=== PATIENT | male | born 1955 | race Caucasian/White ===

== ENCOUNTER → 2019-07-09 11:27 | Outpatient (BNVA) | payer MEDICARE, OTHER, SELFPAY | PROVIDERS: Family Provider Family Medicine; PCP Family Medicine; Referring Provider Family Medicine; Visit Provider Otolaryngology | DX: H93.19 Tinnitus, unspecified ear (principal); H91.90 Unspecified hearing loss, unspecified ear; H91.10 Presbycusis, unspecified ear | CPT/HCPCS: 99203; 99214 ==

== ENCOUNTER → 2019-07-18 10:00 | Outpatient (BNVA) | payer MEDICARE, OTHER, SELFPAY | PROVIDERS: Family Provider Family Medicine; PCP Family Medicine; Visit Provider Family Medicine | DX: N18.3 Chronic kidney disease, stage 3 (moderate) (principal) | CPT/HCPCS: 80069; 82044; 82306; 82310; 83970; 85025 ==

== ENCOUNTER → 2019-10-03 10:00 | Outpatient (BNVA) | payer MEDICARE, OTHER, SELFPAY | PROVIDERS: Family Provider Family Medicine; PCP Family Medicine; Visit Provider Internal Medicine Nephrology | DX: N18.4 Chronic kidney disease, stage 4 (severe) (principal) | CPT/HCPCS: 80069; 82044; 85025 ==

== ENCOUNTER → 2019-12-13 10:42 | Outpatient (BNVA) | payer MEDICARE, OTHER, SELFPAY | PROVIDERS: Family Provider Family Medicine; PCP Family Medicine; Visit Provider Family Medicine | DX: M17.0 Bilateral primary osteoarthritis of knee (principal); N18.1 Chronic kidney disease, stage 1; E11.42 Type 2 diabetes mellitus with diabetic polyneuropathy; E11.9 Type 2 diabetes mellitus without complications | CPT/HCPCS: 83036 ==

== ENCOUNTER → 2020-03-12 09:46 | Outpatient (BNVA) | payer MEDICARE, OTHER, SELFPAY | PROVIDERS: Family Provider Family Medicine; PCP Family Medicine; Visit Provider Family Medicine | DX: E11.9 Type 2 diabetes mellitus without complications (principal); N18.1 Chronic kidney disease, stage 1 | CPT/HCPCS: 36415; 80053; 80061; 83036; 85025 ==

== ENCOUNTER → 2020-07-16 14:00 | Outpatient (BNVA) | payer MEDICARE, OTHER, SELFPAY | PROVIDERS: Family Provider Family Medicine; PCP Family Medicine; Visit Provider Dermatology | DX: N18.30 Chronic kidney disease, stage 3 unspecified (principal) | CPT/HCPCS: 80069; 82043; 82310; 83970; 85025 ==

== ENCOUNTER → 2021-01-15 13:37 | Outpatient (BNVA) | payer MEDICARE, OTHER, SELFPAY | PROVIDERS: Family Provider Family Medicine; PCP Family Medicine; Visit Provider Family Medicine | DX: E11.42 Type 2 diabetes mellitus with diabetic polyneuropathy (principal); E78.2 Mixed hyperlipidemia; I12.9 Hypertensive chronic kidney disease with stage 1 through stage 4 chronic kidney disease, or unspecified chronic kidney disease; N18.1 Chronic kidney disease, stage 1 | CPT/HCPCS: 80053; 80061; 83036; 84439; 84443; 85025 ==

== ENCOUNTER → 2021-04-21 10:00 | Outpatient (BNVA) | payer MEDICARE, OTHER, SELFPAY | PROVIDERS: Family Provider Family Medicine; PCP Family Medicine; Visit Provider Family Medicine | DX: R79.89 Other specified abnormal findings of blood chemistry (principal); E03.9 Hypothyroidism, unspecified | CPT/HCPCS: 84439; 84443 ==

== ENCOUNTER → 2021-05-20 11:12 | Outpatient (BNVA) | payer MEDICARE, OTHER, SELFPAY | PROVIDERS: Family Provider Family Medicine; PCP Family Medicine; Visit Provider Family Medicine | DX: M79.673 Pain in unspecified foot (principal); E11.42 Type 2 diabetes mellitus with diabetic polyneuropathy | CPT/HCPCS: 73630; 83036; 84550 ==

== ENCOUNTER → 2021-07-20 10:03 | Outpatient (BNVA) | payer MEDICARE, OTHER, SELFPAY | PROVIDERS: Family Provider Family Medicine; PCP Family Medicine; Visit Provider Family Medicine | DX: Z01.812 Encounter for preprocedural laboratory examination (principal); Z20.822 Contact with and (suspected) exposure to COVID-19; Z12.11 Encounter for screening for malignant neoplasm of colon; N18.31 Chronic kidney disease, stage 3a; G47.00 Insomnia, unspecified; G47.8 Other sleep disorders; E11.42 Type 2 diabetes mellitus with diabetic polyneuropathy; M17.0 Bilateral primary osteoarthritis of knee | CPT/HCPCS: 80069; 82043; 82310; 83970; 85025; 87635 ==

== ENCOUNTER 2021-07-27 06:20 | Day surgery (SDC) | payer MEDICARE, OTHER, SELFPAY ==
[2021-07-23 11:38] VITALS: BMI 39.7
[2021-07-27 06:37] VITALS: BP 162/95; PULSE 71; RESP 16; TEMP 36.2; O2SAT 94
[2021-07-27] MEDS: sodium chloride 0.9% 1,000 ML 30 ML IV (06:50)
--- NOTE | 2021-07-27 06:51 | P.ANESASSM_ITS ---
Pre-Anesthetic Assessment Height/Weight: Height 1.78 m Weight 125.645 kg Temp Pulse Resp BP Pulse Ox 97.2 F L 71 16 162/95 94 07/27/21 06:37 07/27/21 06:37 07/27/21 06:37 07/27/21 06:37 07/27/21 06:37 Preop Diagnosis: Screen Operation Date: 07/27/21 07:30 Proposed Procedures p Colonoscopy 82074(Not Applicable) - Rome Wright MD Familial anesthetic complications: None Was Beta Grabiel taken within 24 hours: Yes Was Clonidine taken within 24 hours: N/A Last intake: Intake Last Liquid Date 07/26/21 Last Liquid Time 23:30 Last Solid Date 07/26/21 Last Solid Time 00:00 Social No alcohol and No tobacco Exam alert, oriented x 3, clear to auscultation bilaterally and regular rate & rhythm Airway Submandibular: within normal limits Cervical ROM: within normal limits Mallampati: Class II Dentition: chipped Pulmonary Exertional Dyspnea and Sleep Apnea CV/HEM Hypertension METS = 4 Chronic Renal Insufficiency Hepatic None reported GI Gastroesophageal Reflux Disease Metabolic Diabetes Mellitus and Morbid Obesity [facility] None reported Neuropsych Neuropathy and None reported Anesthetic Plan ASA status: 3 Anesthesia: Anesthesia Evaluation, General and MAC Other: I discussed with the patient risks, goals, and benefits of MAC and general anesthesia. We discussed spectrum of MAC anesthesia including conversion to general as well as possibility of recall of intraoperative stimuli including discomfort/pain. Patient agrees to proceed with MAC. Risk of > 500 ml blood loss (7ml/kg in children): No Medications/Allergies Home Medications Medication Instructions Recorded Confirmed Last Taken Type acetaminophen 325 mg capsule 325 mg PO ONCE PRN 05/18/19 07/27/21 07/26/21 History blood-glucose meter (Contour Next #1 each 05/18/19 07/20/21 Unknown History EZ Meter) diclofenac sodium 1 % topical gel 2 gm TOPICAL BID PRN gm 05/18/19 07/27/21 Unknown History (Voltaren) allopurinol 300 mg tablet 300 mg PO DAILY #90 tab 11/05/20 07/27/21 07/26/21 Rx tamsulosin 0.4 mg capsule 0.4 mg PO DAILY #90 cap 11/05/20 07/27/21 07/26/21 Rx sertraline 100 mg tablet 150 mg PO Q24H #90 tab 12/17/20 07/27/21 07/26/21 Rx pregabalin 75 mg capsule (Lyrica) 75 mg PO BID #60 cap 02/26/21 07/27/21 07/26/21 Rx simvastatin 10 mg tablet 10 mg PO DAILY #30 tab 02/26/21 07/27/21 07/26/21 Rx furosemide 40 mg tablet (Lasix) 40 mg PO QAM #30 tab 03/05/21 07/27/21 07/26/21 Rx levothyroxine 100 mcg capsule 100 mcg PO DAILY #30 cap 04/23/21 07/27/21 07/26/21 Rx atenolol 50 mg tablet 50 mg PO DAILY #90 tab 06/24/21 07/27/21 07/26/21 Rx cpap #1 ea 06/24/21 07/20/21 Unknown Rx linagliptin 5 mg tablet (Tradjenta) 5 mg PO QAM #30 tab 06/24/21 07/27/21 07/26/21 Rx niacin 500 mg capsule,extended 500 mg PO BID #90 cap 06/24/21 07/27/21 07/26/21 Rx release potassium chloride 20 mEq 20 meq PO DAILY #90 tab 06/24/21 07/27/21 07/26/21 Rx tablet,extended release cephalexin 500 mg capsule 500 mg PO QID #40 cap 07/20/21 07/27/21 Unknown Rx tramadol 50 mg tablet 100 mg PO Q8H PRN #180 tab MDD 3 07/20/21 07/27/21 07/26/21 Rx zolpidem 10 mg tablet (Ambien) 10 mg PO .at HS PRN #30 tab 07/20/21 07/27/21 07/26/21 Rx glipizide 10 mg tablet 10 mg PO DAILY 07/23/21 07/27/21 07/26/21 History metformin 500 mg tablet 500 mg PO BID 07/23/21 07/27/21 07/26/21 History Allergies Allergy/AdvReac Type Severity Reaction Status Date / Time No Known Allergies Allergy Verified 07/27/21 06:33 Current Medications Generic Name Dose Route Start Last Admin Trade Name Freq PRN Reason Stop Dose Admin Sodium Chloride 1,000 mls @ 30 mls/hr 07/27/21 06:30 07/27/21 06:50 Sodium Chloride 0.9% IV 07/28/21 06:29 30 mls/hr .Q24H PAULETTE Administration PFSH Anesthesia Medical History BPH (benign prostatic hyperplasia) Diabetes Diabetic neuropathy History of MRSA infection Hyperlipidemia Hyperlipidemia Hypertension Insomnia GUSTAVO (obstructive sleep apnea) Osteoarthritis Renal failure Surgical History History of back surgery History of right knee surgery tka Social History Smoking and tobacco status: never smoked Alcohol intake: never Data Anesthesia Cardiac Studies: No Data to Display
--- NOTE | 2021-07-27 07:38 | P.HP_ITS ---
Same Day Surgery H&P Indication for Procedure/HPI DATE OF PROCEDURE: July 27, 2021 CHIEF COMPLAINT/INDICATIONFOR SURGICAL PROCEDURE: Screening PREOP DIAGNOSIS: Screen PLANNED PROCEDURE: Operation Date: 07/27/21 07:30 Proposed Procedures p Colonoscopy 26354(Not Applicable) - Rome Wright MD Medications/Allergies* Home Medications Medication Instructions Recorded Confirmed Type acetaminophen 325 mg capsule 325 mg PO ONCE PRN 05/18/19 07/27/21 History blood-glucose meter (Contour Next #1 each 05/18/19 07/20/21 History EZ Meter) diclofenac sodium 1 % topical gel 2 gm TOPICAL BID PRN gm 05/18/19 07/27/21 History (Voltaren) glipizide 10 mg tablet 10 mg PO DAILY 07/23/21 07/27/21 History metformin 500 mg tablet 500 mg PO BID 07/23/21 07/27/21 History Allergies/Adverse Reactions Allergy/AdvReac Type Severity Reaction Status Date / Time No Known Allergies Allergy Verified 07/27/21 06:33 Current Medications: Generic Name Dose Route Start Last Admin Trade Name Freq PRN Reason Stop Dose Admin Sodium Chloride 1,000 mls @ 30 mls/hr 07/27/21 06:30 07/27/21 06:50 Sodium Chloride 0.9% IV 07/28/21 06:29 30 mls/hr .Q24H PAULETTE Administration Pertinent History/Comorbid Conditions* Medical History (Updated 07/15/21 @ 10:07 by Rome Wright MD) BPH (benign prostatic hyperplasia) Diabetes Diabetic neuropathy History of MRSA infection Hyperlipidemia Hyperlipidemia Hypertension Insomnia GUSTAVO (obstructive sleep apnea) Osteoarthritis Renal failure Surgical History (Updated 05/18/19 @ 11:57 by Claude Polanco DO) History of back surgery History of right knee surgery tka Social History Smoking and tobacco status: never smoked Alcohol intake: never Pertinent Exam Findings alert, oriented x 3, clear to auscultation bilaterally, regular rate & rhythm, operative site marked and procedure specific exam findings Recommendations Surgery/Procedure today Coding Level of Care Code Acute School Childcare Attendant for Aylin Izaguirre
[2021-07-27 07:58] VITALS: BP 130/79; PULSE 61; RESP 18; TEMP 36.1; O2SAT 95
[2021-07-27 08:16] VITALS: BP 146/86; PULSE 62; RESP 18; O2SAT 96
--- NOTE | 2021-07-27 09:30 | ANE.PACU2 ---
Inpatient post-anesthesia follow up: Airway intact: Yes Vital signs: Temperature 97 F Pulse Rate 62 Respiratory Rate 18 Blood Pressure 146/86 Pulse Oximetry 96 Oxygen Delivery Me thod Room Air Oxygen Flow Rate Fraction of Inspir ed Oxygen Hydration adequate: Yes Nausea and vomiting: No Pain level: 1 Mental status: Baseline
== END 2021-07-27 08:25 | disposition home or self-care (01) ==
PROVIDERS: PCP Family Medicine; Visit Provider Internal Medicine
PROC: 0DJD8ZZ Inspection of Lower Intestinal Tract, Via Natural or Artificial Opening Endoscopic (ICD-10-PCS; CPT 45378; principal; 2021-07-27 07:30)
DX: Z12.11 Encounter for screening for malignant neoplasm of colon (principal); N40.0 Benign prostatic hyperplasia without lower urinary tract symptoms; E11.40 Type 2 diabetes mellitus with diabetic neuropathy, unspecified; Z86.14 Personal history of Methicillin resistant Staphylococcus aureus infection; M19.90 Unspecified osteoarthritis, unspecified site; E78.5 Hyperlipidemia, unspecified; I10 Essential (primary) hypertension; G47.30 Sleep apnea, unspecified; K21.9 Gastro-esophageal reflux disease without esophagitis; E11.9 Type 2 diabetes mellitus without complications; E66.01 Morbid (severe) obesity due to excess calories; Z68.39 Body mass index [BMI] 39.0-39.9, adult; Z79.84 Long term (current) use of oral hypoglycemic drugs
CPT/HCPCS: G0121; J2704; J7030

== ENCOUNTER → 2022-01-25 10:23 | Outpatient (BNVA) | payer MEDICARE, OTHER, SELFPAY | PROVIDERS: PCP Family Medicine; Visit Provider Family Medicine | DX: E11.9 Type 2 diabetes mellitus without complications | CPT/HCPCS: 83036 ==

== ENCOUNTER → 2022-03-03 10:14 | Outpatient (BNVA) | payer MEDICARE, OTHER, SELFPAY | PROVIDERS: PCP Family Medicine; Referring Provider Family Medicine; Visit Provider Podiatrist Foot & Ankle Surgery | DX: E11.42 Type 2 diabetes mellitus with diabetic polyneuropathy (principal); M19.171 Post-traumatic osteoarthritis, right ankle and foot; Q66.221 Congenital metatarsus adductus, right foot | CPT/HCPCS: 73630; 99203; 99204 ==

== ENCOUNTER → 2022-06-07 10:08 | Outpatient (BNVA) | payer MEDICARE, OTHER, SELFPAY | PROVIDERS: PCP Family Medicine; Visit Provider Podiatrist Foot & Ankle Surgery | DX: M19.171 Post-traumatic osteoarthritis, right ankle and foot (principal); Q66.221 Congenital metatarsus adductus, right foot; E11.42 Type 2 diabetes mellitus with diabetic polyneuropathy | CPT/HCPCS: 99214 ==

== ENCOUNTER → 2022-06-23 11:46 | Outpatient (BNVA) | payer MEDICARE, OTHER, SELFPAY | PROVIDERS: PCP Family Medicine; Visit Provider Family Medicine | DX: E11.9 Type 2 diabetes mellitus without complications (principal) | CPT/HCPCS: 83036 ==

== ENCOUNTER → 2022-09-15 09:39 | Outpatient (BNVA) | payer MEDICARE, OTHER, SELFPAY | PROVIDERS: PCP Family Medicine; Visit Provider Family Medicine | DX: E11.9 Type 2 diabetes mellitus without complications (principal) | CPT/HCPCS: 83036 ==

== ENCOUNTER → 2022-09-22 16:17 | Outpatient (BNVA) | payer MEDICARE, OTHER, SELFPAY | PROVIDERS: PCP Family Medicine; Visit Provider Registered Nurse | DX: N28.89 Other specified disorders of kidney and ureter (principal); N18.31 Chronic kidney disease, stage 3a | CPT/HCPCS: 80069; 82043; 82542; 82652; 85025 ==

== ENCOUNTER → 2023-01-20 09:35 | Outpatient (BNVA) | payer MEDICARE, OTHER, SELFPAY | PROVIDERS: PCP Family Medicine; Visit Provider Family Medicine | DX: E11.9 Type 2 diabetes mellitus without complications (principal) | CPT/HCPCS: 83036 ==

== ENCOUNTER → 2023-04-11 10:18 | Outpatient (BNVA) | payer MEDICARE, OTHER, SELFPAY | PROVIDERS: PCP Family Medicine; Visit Provider Family Medicine | DX: N18.31 Chronic kidney disease, stage 3a (principal); E55.9 Vitamin D deficiency, unspecified; N25.0 Renal osteodystrophy; N28.89 Other specified disorders of kidney and ureter | CPT/HCPCS: 80069; 82043; 82542; 82652; 85025 ==

== ENCOUNTER 2023-04-29 11:25 | Outpatient (CLI) | payer MEDICARE, OTHER, SELFPAY ==
--- NOTE | 2023-04-29 11:45 | US_ITS ---
WS: [id number] Exam: US renal BI with PV bladder Date/Time of Exam: 04/29/2023 11:45 AM Reason For Exam: N18.9 - Chronic kidney disease, unspecified No solid renal mass or renal obstruction. The LEFT kidney measures 13.2 x 4.26 x 6.25 cm. Cortical th ickness of the LEFT kidney is 1.23 cm. A 3.25 cm simple cyst is seen at the upper pole of the LEFT ki dney. The RIGHT kidney measures 12.66 x 5.26 x 4.14 cm. Cortical thickness of the RIGHT kidney is 1.42 cm. There is a 1.9 cm cyst at the midpole of the RIGHT kidney. The urinary bladder is smooth in contour. No sign of intrinsic or extrinsic bladder filling defect. P revoid bladder volume was 3 1 7 mL, post void volume was 5 mL. IMPRESSION: 1. No indication of the solid renal mass or renal obstruction. 2. Solitary simple bilateral renal cysts are noted. 3. No significant post void residual volume in the urinary bladder.
== END 2023-04-29 11:26 | disposition home or self-care (01) ==
PROVIDERS: PCP Family Medicine; Visit Provider Family Medicine
DX: N18.9 Chronic kidney disease, unspecified (principal); N28.1 Cyst of kidney, acquired
CPT/HCPCS: 76770; 76857

== ENCOUNTER → 2023-05-18 08:34 | Outpatient (BNVA) | payer MEDICARE, OTHER, SELFPAY | PROVIDERS: PCP Family Medicine; Visit Provider Family Medicine | DX: E11.9 Type 2 diabetes mellitus without complications (principal) | CPT/HCPCS: 83036 ==

== ENCOUNTER → 2023-06-09 07:32 | Outpatient (BNVA) | payer MEDICARE, OTHER, SELFPAY | PROVIDERS: PCP Family Medicine; Visit Provider Family Medicine | DX: N18.32 Chronic kidney disease, stage 3b (principal); N28.89 Other specified disorders of kidney and ureter | CPT/HCPCS: 80069; 81003; 82542; 85025 ==

== ENCOUNTER → 2023-07-18 11:21 | Outpatient (BNVA) | payer MEDICARE, OTHER, SELFPAY | PROVIDERS: PCP Family Medicine; Visit Provider Family Medicine | DX: E11.9 Type 2 diabetes mellitus without complications (principal) | CPT/HCPCS: 83036 ==

== ENCOUNTER → 2023-12-15 09:20 | Outpatient (BNVA) | payer MEDICARE, OTHER, SELFPAY | PROVIDERS: PCP Family Medicine; Visit Provider Nurse Practitioner Family | DX: N18.31 Chronic kidney disease, stage 3a (principal); Z68.41 Body mass index [BMI] 40.0-44.9, adult | CPT/HCPCS: 80069; 82043; 82306; 82310; 83970; 85007; 85027 ==

== ENCOUNTER → 2023-12-26 10:38 | Outpatient (BNVA) | payer MEDICARE, OTHER, SELFPAY | PROVIDERS: PCP Family Medicine; Visit Provider Nurse Practitioner Family | DX: E11.9 Type 2 diabetes mellitus without complications (principal) | CPT/HCPCS: 83036 ==

== ENCOUNTER → 2024-03-26 10:30 | Outpatient (BNVA) | payer MEDICARE, OTHER, SELFPAY | PROVIDERS: PCP Family Medicine; Visit Provider Nurse Practitioner Family | DX: E03.9 Hypothyroidism, unspecified; E11.9 Type 2 diabetes mellitus without complications; N18.9 Chronic kidney disease, unspecified | CPT/HCPCS: 80053; 80061; 83036; 84443 ==

== ENCOUNTER → 2024-06-18 08:52 | Outpatient (BNVA) | payer MEDICARE, OTHER, SELFPAY | PROVIDERS: PCP Nurse Practitioner Family; Visit Provider Nurse Practitioner Family | DX: N18.32 Chronic kidney disease, stage 3b (principal); Z68.41 Body mass index [BMI] 40.0-44.9, adult | CPT/HCPCS: 80069; 82043; 82306; 82310; 83970; 85025 ==

== ENCOUNTER → 2024-06-25 13:00 | Outpatient (BNVA) | payer MEDICARE, OTHER, SELFPAY | PROVIDERS: PCP Nurse Practitioner Family; Visit Provider Nurse Practitioner Family | DX: E11.9 Type 2 diabetes mellitus without complications (principal) | CPT/HCPCS: 83036 ==

== ENCOUNTER 2024-07-31 12:43 | Outpatient (CLI) | payer MEDICARE, OTHER, SELFPAY ==
--- NOTE | 2024-07-31 12:48 | XRR_ITS ---
PROCEDURE INFORMATION: Exam: XR Thoracic Spine Exam date and time: 07/31/2024 1:02 PM Age: 69 years old Clinical indication: Pain and injury or trauma; Blunt trauma (contusions or hematomas); Pain in thoracic spine; Injury details: Falls recently that has caused pain in the right wrist under the thumb. When PT fell it caused pain in the lower and mid back; Prior surgery; Surgery date: 6+ months; Surgery type: Arthritis and carpal tunner right wrist. L5/s1 plates; Additional info: M54.6 - pain in thoracic spine TECHNIQUE: Imaging protocol: Radiologic exam of the thoracic spine. Views: 3 views. COMPARISON: CR XR lumbar spine 2-3V* [id number] 07/31/2024 1:02 PM FINDINGS: Bones/joints: There is mild broad-based convex left curvature of the spine centered at the thoracolumbar junction. Vertebral body height is maintained. No acute fracture. Visible portions of the ribs are intact. Soft tissues: Unremarkable. Lungs: Visible portions of the lungs are unremarkable. XR/XR thoracic spine 3V* [id number] IMPRESSION: 1. Mild thoracolumbar scoliosis. 2. No acute fracture.
--- NOTE | 2024-07-31 12:48 | XRR_ITS ---
PROCEDURE INFORMATION: Exam: XR Lumbosacral Spine Exam date and time: 07/31/2024 1:02 PM Age: 69 years old Clinical indication: Injury or trauma; Blunt trauma (contusions or hematomas); Injury details: Falls recently that has caused pain in the right wrist under the thumb. When PT fell it caused pain in the lower and mid back. Prior surgery; Surgery date: 6+ months; Surgery type: Arthritis and carpal tunner right wrist. L5/s1 plates; Additional info: Z98.890 - other specified postprocedural states TECHNIQUE: Imaging protocol: Radiologic exam of the lumbosacral spine. Views: 2 or 3 views. COMPARISON: CR XR thoracic spine 3V* [id number] 07/31/2024 1:02 PM FINDINGS: Tubes, catheters and devices: Intact posterolateral hardware and osseous interbody fusion at L5-S1. No sign of loosening. Bones/joints: There is trace anterolisthesis of L5 on S1 which is chronic. Spinal alignment is otherwise normal. Vertebral body height is maintained. There is moderate disc degeneration at L4-L5. There is L5-S1 facet ankylosis. There is moderate facet spondylosis at L4-L5. No acute fracture. The visible portion of the pelvis and sacrum is intact. Visible portions of the ribs are intact. Soft tissues: Visible soft tissues are unremarkable. Vasculature: There is mild aortic calcification. XR/XR lumbar spine 2-3V* [id number] IMPRESSION: 1. No acute findings. 2. Intact L5-S1 posterolateral fusion.
--- NOTE | 2024-07-31 12:48 | XRR_ITS ---
PROCEDURE INFORMATION: Exam: XR Right Wrist Exam date and time: 07/31/2024 1:02 PM Age: 69 years old Clinical indication: Injury or trauma; Blunt trauma (contusions or hematomas); Injury details: Falls recently that has caused pain in the right wrist under the thumb. When PT fell it caused pain in the lower and mid back; Prior surgery; Surgery date: 6+ months; Surgery type: Arthritis and carpal tunner right wrist. L5/s1 plates. ; Additional info: M25.531 - pain in right wrist TECHNIQUE: Imaging protocol: Radiologic exam of the right wrist. Views: 3 or more views. COMPARISON: No relevant prior studies available. FINDINGS: Bones/joints: Alignment is normal. No acute fracture. There is moderate joint space narrowing and osteophytes at the 1st interphalangeal and metacarpophalangeal joints. There has been resection of the trapezium. The radiocarpal joint is unremarkable. There is mild chondrocalcinosis at the TFCC associated with ulnar positive variance. Soft tissues: Unremarkable. XR/XR wrist RT min 3V* [id number] IMPRESSION: 1. Ulnar positive variance and calcification the triangular fibrocartilage complex. Possible TFCC tear. 2. Osteoarthritis in the thumb with remote resection of the trapezium. 3. No acute fracture.
== END 2024-07-31 12:44 | disposition home or self-care (01) ==
LOC: RAD 12:45
PROVIDERS: PCP Nurse Practitioner Family; Visit Provider Nurse Practitioner Family
DX: Z98.890 Other specified postprocedural states (principal); M51.369 Other intervertebral disc degeneration, lumbar region without mention of lumbar back pain or lower extremity pain; M41.85 Other forms of scoliosis, thoracolumbar region; M11.231 Other chondrocalcinosis, right wrist; W19.XXXA Unspecified fall, initial encounter; M24.69 Ankylosis, other specified joint; M47.896 Other spondylosis, lumbar region; Z98.1 Arthrodesis status; I70.0 Atherosclerosis of aorta; R93.6 Abnormal findings on diagnostic imaging of limbs; M18.9 Osteoarthritis of first carpometacarpal joint, unspecified
CPT/HCPCS: 72072; 72100; 73110

== ENCOUNTER → 2024-08-08 09:04 | Outpatient (BNVA) | payer MEDICARE, OTHER, SELFPAY | PROVIDERS: PCP Nurse Practitioner Family; Visit Provider Nurse Practitioner | DX: G56.03 Carpal tunnel syndrome, bilateral upper limbs (principal); M19.031 Primary osteoarthritis, right wrist; M67.431 Ganglion, right wrist | CPT/HCPCS: 20600; 73110; 99204; J3301; J9999 ==

== ENCOUNTER 2024-08-14 05:15 | Outpatient (RCR) | payer MEDICARE, OTHER, SELFPAY | END 2024-09-12 23:59 | disposition home or self-care (01) | LOC: GPT 05:15 | PROVIDERS: PCP Nurse Practitioner Family; Visit Provider Nurse Practitioner Family | DX: R29.6 Repeated falls (principal) | CPT/HCPCS: 97110; 97112; 97162 ==

== ENCOUNTER 2024-09-13 05:00 | Outpatient (RCR) | payer MEDICARE, OTHER, SELFPAY | END 2024-10-09 12:39 | disposition home or self-care (01) | LOC: GPT 05:00 | PROVIDERS: PCP Nurse Practitioner Family; Visit Provider Nurse Practitioner Family | DX: R29.6 Repeated falls (principal) | CPT/HCPCS: 97110; 97112 ==

== ENCOUNTER → 2024-09-24 10:30 | Outpatient (BNVA) | payer MEDICARE, OTHER, SELFPAY | PROVIDERS: PCP Nurse Practitioner Family; Visit Provider Nurse Practitioner Family | DX: E11.9 Type 2 diabetes mellitus without complications (principal); I10 Essential (primary) hypertension; E03.9 Hypothyroidism, unspecified | CPT/HCPCS: 80053; 80061; 83036; 84443 ==

== ENCOUNTER → 2024-10-04 15:02 | Outpatient (BNVA) | payer MEDICARE, OTHER, SELFPAY | PROVIDERS: PCP Nurse Practitioner Family; Visit Provider Orthopaedic Surgery | DX: M54.32 Sciatica, left side (principal); M54.50 Low back pain, unspecified | CPT/HCPCS: 72110; 99203 ==

== ENCOUNTER 2024-10-19 11:17 | Outpatient (CLI) | payer MEDICARE, OTHER, SELFPAY ==
--- NOTE | 2024-10-19 11:45 | MR_ITS ---
WS: [id number] MRI LUMBAR SPINE NONCONTRAST HISTORY: lumbar pain, right-sided pain. Several falls. COMPARISON: None available. TECHNIQUE: Sagittal and axial multisequence imaging is submitted. Mild reversal of the normal cervical lordosis. Mild disc osteophyte encroachment upon the cervical canal at C4-5 and C6-7. Posterior L5-S1 lumbar fusion. Disc spaces are mildly narrowed. L4-5 disc base may contain a spacer or is calcified. Conus terminates normally at L1. L1-L2: Normal. L2-L3: Diffuse annular disc bulging with facet disease. Mild subarticular recess and foraminal narrowing. L3-L4: Large central disc protrusion extends cephalad from the disc. This extruded disc extends over a length of 2.0 cm. Largest transverse diameter is 1.0 cm. Disc is causing significant deformity of the thecal sac extending into the subarticular recess but greatest on the LEFT. Mild RIGHT and moderate LEFT foraminal narrowing due to disc osteophyte and facet disease. L4-L5: This disc level is difficult to see due to the hardware at L4-5. There does appear to be disc bulging. Extent of foraminal stenosis cannot be determined. L5-S1: Obscured by metallic artifact. MR/MR lumbar spine wo con* [id number] IMPRESSION: 1. Status post posterior lumbar fusion at L5-S1. 2. Large central extruded disc at L3-4. Disc extends cephalad from the disc sp deion and extends over a length of 2.0 cm. Maximum transverse diameter is 1.0 cm with significant mass effect upon the thecal sac and nerve roots, slightly grea ter to the LEFT than the RIGHT. 3. Moderate LEFT and mild RIGHT foraminal stenosis due to disc osteophyte and facet disease. 4. L4-5 and L5-S1 evaluation is limited by artifact.
== END 2024-10-19 11:18 | disposition home or self-care (01) ==
LOC: RAD 11:17
PROVIDERS: PCP Nurse Practitioner Family; Visit Provider Orthopaedic Surgery
DX: M54.50 Low back pain, unspecified (principal)
CPT/HCPCS: 72148

== ENCOUNTER → 2024-10-24 10:23 | Outpatient (BNVA) | payer MEDICARE, OTHER, SELFPAY | PROVIDERS: PCP Nurse Practitioner Family; Referring Provider Registered Nurse; Visit Provider Nurse Practitioner Family | DX: N18.32 Chronic kidney disease, stage 3b (principal) | CPT/HCPCS: 80069; 82043; 85025 ==

== ENCOUNTER → 2024-10-25 08:35 | Outpatient (BNVA) | payer MEDICARE, OTHER, SELFPAY | PROVIDERS: PCP Nurse Practitioner Family; Visit Provider Orthopaedic Surgery | DX: M54.50 Low back pain, unspecified (principal); Z09 Encounter for follow-up examination after completed treatment for conditions other than malignant neoplasm | CPT/HCPCS: 99214 ==

== ENCOUNTER → 2024-10-29 08:56 | Outpatient (BNVA) | payer MEDICARE, OTHER, SELFPAY | PROVIDERS: PCP Nurse Practitioner Family; Visit Provider Nurse Practitioner Family | DX: M54.16 Radiculopathy, lumbar region (principal); G89.29 Other chronic pain | CPT/HCPCS: 99214 ==

== ENCOUNTER → 2024-11-06 12:52 | Outpatient (BNVA) | payer MEDICARE, OTHER, SELFPAY | PROVIDERS: PCP Nurse Practitioner Family; Visit Provider Nurse Practitioner Family | DX: M79.10 Myalgia, unspecified site (principal); M54.16 Radiculopathy, lumbar region; G89.29 Other chronic pain | CPT/HCPCS: 20553; 99214; J1010; J3490 ==

== ENCOUNTER → 2024-11-21 10:07 | Outpatient (BNVA) | payer MEDICARE, OTHER, SELFPAY | PROVIDERS: PCP Nurse Practitioner Family; Visit Provider Nurse Practitioner Family | DX: M54.16 Radiculopathy, lumbar region (principal); G89.29 Other chronic pain | CPT/HCPCS: 99214 ==

== ENCOUNTER → 2024-12-05 13:39 | Outpatient (BNVA) | payer MEDICARE, OTHER, SELFPAY | PROVIDERS: PCP Nurse Practitioner Family; Visit Provider Anesthesiology Pain Medicine | DX: M54.16 Radiculopathy, lumbar region (principal); G89.29 Other chronic pain; M54.9 Dorsalgia, unspecified | CPT/HCPCS: 36416; 64483; 64484; 82962; J1100; J3490; J9999 ==

== ENCOUNTER → 2024-12-17 14:15 | Outpatient (BNVA) | payer MEDICARE, OTHER, SELFPAY | PROVIDERS: PCP Nurse Practitioner Family; Visit Provider Nurse Practitioner | DX: M19.031 Primary osteoarthritis, right wrist (principal); M67.431 Ganglion, right wrist | CPT/HCPCS: 20605; 73110; 99214; J3301; J9999 ==

== ENCOUNTER → 2024-12-19 08:51 | Outpatient (BNVA) | payer MEDICARE, OTHER, SELFPAY | PROVIDERS: PCP Nurse Practitioner Family; Visit Provider Nurse Practitioner Family | DX: M54.16 Radiculopathy, lumbar region (principal); G89.29 Other chronic pain | CPT/HCPCS: 99214 ==

== ENCOUNTER → 2024-12-25 10:25 | Outpatient (BNVA) | payer MEDICARE, OTHER, SELFPAY | PROVIDERS: PCP Nurse Practitioner Family; Visit Provider Nurse Practitioner Family | DX: E11.9 Type 2 diabetes mellitus without complications (principal) | CPT/HCPCS: 83036 ==

== ENCOUNTER → 2025-01-02 08:59 | Outpatient (BNVA) | payer MEDICARE, OTHER, SELFPAY | PROVIDERS: PCP Nurse Practitioner Family; Visit Provider Anesthesiology Pain Medicine | DX: M47.816 Spondylosis without myelopathy or radiculopathy, lumbar region (principal); M54.16 Radiculopathy, lumbar region | CPT/HCPCS: 64493; 64494; 64495; J3490; J9999 ==

== ENCOUNTER → 2025-01-17 10:16 | Outpatient (BNVA) | payer MEDICARE, OTHER, SELFPAY | PROVIDERS: PCP Nurse Practitioner Family; Visit Provider Nurse Practitioner Family | DX: M54.16 Radiculopathy, lumbar region (principal); G89.29 Other chronic pain | CPT/HCPCS: 99214 ==

== ENCOUNTER → 2025-01-21 10:26 | Outpatient (BNVA) | payer MEDICARE, OTHER, SELFPAY | PROVIDERS: PCP Nurse Practitioner Family; Visit Provider Nurse Practitioner | DX: M19.031 Primary osteoarthritis, right wrist (principal); M67.431 Ganglion, right wrist | CPT/HCPCS: 99214 ==

== ENCOUNTER → 2025-01-24 10:29 | Outpatient (BNVA) | payer MEDICARE, OTHER, SELFPAY | PROVIDERS: PCP Nurse Practitioner Family; Visit Provider Orthopaedic Surgery | DX: Z01.818 Encounter for other preprocedural examination (principal); M54.16 Radiculopathy, lumbar region; G89.29 Other chronic pain; M54.32 Sciatica, left side; M48.062 Spinal stenosis, lumbar region with neurogenic claudication | CPT/HCPCS: 36415; 80053; 81001; 85025; 99214 ==

== ENCOUNTER → 2025-02-08 09:21 | Outpatient (BNVA) | payer MEDICARE, OTHER, SELFPAY | PROVIDERS: PCP Nurse Practitioner Family; Visit Provider Family Medicine | DX: Z01.818 Encounter for other preprocedural examination (principal) | CPT/HCPCS: 93005 ==

== ENCOUNTER 2025-02-13 10:45 | Outpatient (CLI) | payer MEDICARE, OTHER, SELFPAY ==
--- NOTE | 2025-02-13 11:00 | MRR_ITS ---
PROCEDURE INFORMATION: Exam: MR Right Upper Extremity Joint Without Contrast; Wrist Exam date and time: 02/13/2025 10:57 AM Age: 69 years old Clinical indication: Pain; Right; Surgery date: 6+ months; Surgery type: Skull, RT shoulder, RT knee, lumbar fusion, RT thumb joint; Prior surgery of RT thumb joint. PT now has swelling on palm side of hand/wrist adjacent to that area. ; Additional info: Ganglion cyst of dorsum of RT wrist TECHNIQUE: Imaging protocol: Magnetic resonance imaging of the right upper extremity without contrast. Exam focused on the wrist. COMPARISON: CR XR wrist RT min 3V* [id number] 12/17/2024 2:17 PM FINDINGS: Bones/joints: There has been prior resection of the trapezium. As expected there is mild proximal migration of the 1st metacarpal. There is minimal marginal osteophytosis at the base of the 1st metatarsal and associated with the scaphoid trapezoid articulation. There is a small degenerative subchondral cyst seen in the proximal pole of the scaphoid. Scapholunate ligament: Unremarkable. No tear. Lunotriquetral ligament: Unremarkable. No tear. Triangular fibrocartilage complex: Intact. No tear. Flexor compartment tendons: Unremarkable. No tear. Extensor compartment tendons: There is mild tenosynovitis of the extensor carpi radialis longus and brevis tendon. There is also mild tenosynovitis of the extensor pollicis brevis and abductor pollicis longus tendon at and immediately distal to the radial styloid. Soft tissues: There is no soft tissue edema or fluid collection. No discrete ganglion is defined. MR/MR wrist RT wo con* [id number] IMPRESSION: 1. Mild tenosynovitis of the extensor carpi radialis longus and brevis tendon 2. Mild short-segment tenosynovitis of the extensor pollicis brevis and abductor pollicis longus tendon. 3. Postsurgical changes and mild degenerative changes at the lateral margin of the wrist status post trapezium resection.
== END 2025-02-13 10:46 | disposition home or self-care (01) ==
LOC: RAD 10:46
PROVIDERS: PCP Nurse Practitioner Family; Visit Provider Nurse Practitioner
DX: M19.031 Primary osteoarthritis, right wrist (principal); M67.431 Ganglion, right wrist
CPT/HCPCS: 73221

== ENCOUNTER 2025-02-15 07:31 | Day surgery (SDC) | payer MEDICARE, OTHER, SELFPAY ==
[2025-02-15] VITALS (11 sets, daily range): BP systolic 104–173; BP diastolic 62–88; PULSE 69–84; RESP 12–19; TEMP 36.1–36.6; O2SAT 90–97
--- NOTE | 2025-02-15 08:38 | ANES.PREANE2 ---
Pre-Anesthetic Assessment Height/Weight: Height 5 ft 10 in Weight 245 lb Temp Pulse Resp BP Pulse Ox O2 Del Method 97.0 F L 70 16 135/79 91 Room Air 02/15/25 07:41 02/15/25 07:41 02/15/25 07:41 02/15/25 07:41 02/15/25 07:41 02/15/25 07:41 Preop Diagnosis: Right L3/4 disc herniation with radiculopathy Operation Date: 02/15/25 09:00 Proposed Procedures p Lumbar Spine Decompression Lumbar Decompression(Not Applicable) - Joseph Worley, DO Was Beta Grabiel taken within 24 hours: N/A Was Clonidine taken within 24 hours: N/A Last intake: Intake Last Liquid Date 02/14/25 Last Liquid Time 23:00 Last Solid Date 02/14/25 Last Solid Time 23:00 Social No alcohol and No tobacco Exam alert, oriented x 3, clear to auscultation bilaterally and regular rate & rhythm Airway Submandibular: within normal limits Cervical ROM: within normal limits Mallampati: Class II Comments: Comments: Few missing teeth, denies any loose Anesthetic Plan ASA status: 3 Anesthesia: General Other: No prior issues with anesthesia NPO since yesterday evening History of hypothyroidism on Synthroid History of CKD, labs reviewed from 01/24/2025 and acceptable for procedure. CR 1.7 at that time which appears to be baseline Hypertension on atenolol METs greater than 4 but limited due to pain Plan for GETA Medications/Allergies Home Medications ?Medication ?Instructions ?Recorded ?Confirmed ?Last Taken ?Type acetaminophen 325 mg capsule 325 mg PO ONCE PRN Pain 05/18/19 02/14/25 07/26/21 History blood-glucose meter (Contour Next #1 ea 05/18/19 01/24/25 Unknown History EZ Meter kit) cpap #1 ea 06/24/21 01/24/25 Unknown Rx Accomdated custom insoles #1 ea 03/03/22 01/24/25 Unknown Rx Diabetic shoes no inserts #1 ea 03/03/22 01/24/25 Unknown Rx empagliflozin 25 mg tablet 25 mg PO QAM 12/26/23 02/14/25 02/11/25 History (Jardiance) potassium chloride 20 mEq 20 meq PO DAILY #90 tabs 06/21/24 02/14/25 02/14/25 Rx tablet,extended release lidocaine 5 % topical patch 2 patch topical DAILY PRN back 10/29/24 02/14/25 Unknown Rx pain #30 ea pregabalin 75 mg capsule (Lyrica) 75 mg PO BID #60 caps 12/06/24 02/14/25 02/14/25 Rx zolpidem 10 mg tablet 10 mg PO ONCE 30 days #30 tabs 12/19/24 02/14/25 02/14/25 Rx alpha lipoic acid 600 mg capsule 1,200 mg PO DAILY 02/08/25 02/14/25 Unknown History tramadol 50 mg tablet 100 mg (2 x 50 mg) PO Q8H #180 tabs 02/12/25 02/14/25 02/14/25 Rx allopurinol 300 mg tablet 300 mg PO DAILY 02/14/25 02/14/25 02/14/25 History atenolol 50 mg tablet 50 mg PO DAILY 02/14/25 02/14/25 02/15/25 History cholecalciferol (vitamin D3) 1,250 1,250 mcg PO DIRECTED 02/14/25 02/14/25 Unknown History mcg (50,000 unit) capsule furosemide 40 mg tablet 40 mg PO DAILY 02/14/25 02/14/25 02/14/25 History glipizide 10 mg tablet 20 mg PO BID 02/14/25 02/14/25 02/14/25 History levothyroxine 100 mcg tablet 100 mcg PO DAILY 02/14/25 02/14/25 02/14/25 History linagliptin 5 mg tablet (Tradjenta) 5 mg PO DAILY 02/14/25 02/14/25 02/11/25 History metformin 1,000 mg tablet 1,000 mg PO BID 02/14/25 02/14/25 02/14/25 History niacin 500 mg tablet,extended 500 mg PO BID 02/14/25 02/14/25 02/14/25 History release 24 hr sertraline 100 mg tablet 200 mg PO DAILY 02/14/25 02/14/25 02/14/25 History simvastatin 10 mg tablet 10 mg PO DAILY 02/14/25 02/14/25 02/14/25 History tamsulosin 0.4 mg capsule 0.4 mg PO DAILY 02/14/25 02/14/25 02/14/25 History Allergies Allergy/AdvReac Type Severity Reaction Status Date / Time No Known Allergies Allergy Verified 02/14/25 09:16 Current Medications Generic Name Dose Route Start Last Admin Trade Name Rhea PRN Reason Stop Dose Admin Sodium Chloride 1,000 mls @ 30 mls/hr 02/15/25 07:30 02/15/25 07:56 Sodium Chloride 0.9% IV 02/16/25 07:29 30 mls/hr .Q24H PAULETTE Administration PFSH Anesthesia Medical History History of kidney stones History of vitamin D deficiency Testosterone deficiency Erectile 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
--- NOTE | 2025-02-15 08:40 | W.PM.OPSUD ---
Surgery/Procedure H&P Update DATE OF PROCEDURE: February 15, 2025 DATE H&P PERFORMED: 01/24/25 H&P UPDATE INFORMATION: I have reviewed H&P completed within last 30 days, I have examined patient prior to procedure and No changes to prior documentation PREOP DIAGNOSIS: Right L3/4 disc herniation with radiculopathy PLANNED PROCEDURE: Operation Date: 02/15/25 09:00 Proposed Procedures p Lumbar Spine Decompression Lumbar Decompression(Not Applicable) - Joseph Worley DO
[2025-02-15] MEDS: ceFAZolin 2,000 mg SDV 2000 MG IVP (08:49)
[2025-02-15] MEDS: lidocaine-epi 1% 20 mL INJ 10 ML INJECTION (09:31)
--- NOTE | 2025-02-15 10:08 | XR_ITS ---
WS: [id number] XR lumbar spine 2-3V* [id number] REASON FOR EXAM: OR PICS FINDINGS: Surgical instrument overlies the left side of the L3-L4 disc space. XR/XR lumbar spine 2-3V* [id number] IMPRESSION: Lumbar level localization and surgery as above.
--- NOTE | 2025-02-15 10:26 | PM.OP ---
Operative Report Date of procedure: February 15, 2025 Pre-op diagnosis: Left L3-4 disc herniation with radiculopathy Post-op diagnosis: same Procedure done: Left L3-4 laminectomy with partial facetectomy and discectomy Surgeon: Joseph Worley DO Estimated blood loss (mL): 25 Procedure: Left L3-4 laminectomy with partial facetectomy and discectom Patient is brought to the operative suite. After undergoing anesthesia they are placed in the prone position. All areas of impingement are well padded. Patient is then prepped and draped in the normal sterile fashion. A skin incision is made over the L3/4 level. This is confirmed under c-arm guidance. A series of dilators are passed and the tubular retractor is docked on the L4 lamina. A bovie is used to clear the soft tissue off the lamina and the L 3/4 facet joint. A high speed bhavana is then used to perform the laminectomy and take down the medial aspect of the L 3/4 facet joint. A kerrison rongeure was then used to take down the remaining lamina and smooth the edge of the laminectomy up to the point where the ligamentum flavum attaches. Attention was then brought to the medial aspect of the facet joint. The remaining medial aspect of the superior and inferior aspect of the facet joint were taken down with the kerrison from the pedicle of L4 to L 4. The facet joint had significant hypertrophy. Attention was then brought to the Ligamentum Flavum. The ligament was taken down from the lamina of L3 to L4 and out medially to the remaining facet joint. The ligament was thick. The dura was then exposed. The dura was in good repair. L4 nerve root was reflected medially and disc fragments were removed. This was done using a micropituitary and curved curette. The L3 nerve was then traced with a curette out the L 3/4 foramen and found to be adequately decompressed. The L4 nerve was traced with a curette around the L4 pedicle. The lateral recess was opened with a kerrison helping to further decompress the L4 nerve. Wound is then irrigated copiously with saline and surgiflo is used to stop any bleeding. The tubular retractor is removed and the wound is closed with vicryl and monocryl suture. Steri strips were applied. A sterile dressing is then placed. Patient was then placed in the supine position and transferred to the PACU in stable condition.
--- NOTE | 2025-02-15 11:20 | ANE.PACU2 ---
Inpatient post-anesthesia follow up: Airway intact: Yes Vital signs: Temperature 97.6 F Pulse Rate 74 Respiratory Rate 16 Blood Pressure 112/66 Pulse Oximetry 92 Oxygen Delivery Me thod Room Air Oxygen Flow Rate 2 Fraction of Inspir ed Oxygen Hydration adequate: Yes Nausea and vomiting: No Pain level: 1 Mental status: Baseline
== END 2025-02-15 11:20 | disposition home or self-care (01) ==
PROVIDERS: PCP Nurse Practitioner Family; Visit Provider Orthopaedic Surgery
PROC: (CPT 63005; principal; 2025-02-15 09:00)
DX: M51.16 Intervertebral disc disorders with radiculopathy, lumbar region (principal); E03.9 Hypothyroidism, unspecified; E11.22 Type 2 diabetes mellitus with diabetic chronic kidney disease; I12.9 Hypertensive chronic kidney disease with stage 1 through stage 4 chronic kidney disease, or unspecified chronic kidney disease; N18.9 Chronic kidney disease, unspecified; G47.33 Obstructive sleep apnea (adult) (pediatric); Z86.14 Personal history of Methicillin resistant Staphylococcus aureus infection; E78.5 Hyperlipidemia, unspecified; Z79.84 Long term (current) use of oral hypoglycemic drugs
CPT/HCPCS: 63030; 36416; 72100; 76000; 82962; J0330; J0690; J1100; J2405; J2704; J3010; J3490; J7030; J9999

== ENCOUNTER → 2025-02-28 14:21 | Outpatient (BNVA) | payer MEDICARE, OTHER, SELFPAY | PROVIDERS: PCP Nurse Practitioner Family; Visit Provider Orthopaedic Surgery | DX: Z98.890 Other specified postprocedural states (principal) | CPT/HCPCS: 99024 ==

== ENCOUNTER 2025-03-04 11:31 | Outpatient (CLI) | payer MEDICARE, SELFPAY | END 2025-03-04 11:32 | disposition home or self-care (01) | LOC: SPT 11:31 | PROVIDERS: PCP Nurse Practitioner Family; Visit Provider Nurse Practitioner | DX: Z46.89 Encounter for fitting and adjustment of other specified devices (principal); M18.11 Unilateral primary osteoarthritis of first carpometacarpal joint, right hand | CPT/HCPCS: L3924 ==

== ENCOUNTER → 2025-03-22 09:07 | Outpatient (BNVA) | payer MEDICARE, OTHER, SELFPAY | PROVIDERS: PCP Nurse Practitioner Family; Visit Provider Nurse Practitioner | DX: M65.931 Unspecified synovitis and tenosynovitis, right forearm (principal); M19.031 Primary osteoarthritis, right wrist; Z71.89 Other specified counseling | CPT/HCPCS: 20610; 99214; J3301; J9999 ==

== ENCOUNTER → 2025-03-27 08:00 | Outpatient (BNVA) | payer MEDICARE, OTHER, SELFPAY | PROVIDERS: PCP Nurse Practitioner Family; Visit Provider Nurse Practitioner Family | DX: E11.9 Type 2 diabetes mellitus without complications (principal); I10 Essential (primary) hypertension; E55.9 Vitamin D deficiency, unspecified | CPT/HCPCS: 80053; 80061; 82306; 83036 ==

== ENCOUNTER → 2025-03-28 10:17 | Outpatient (BNVA) | payer MEDICARE, OTHER, SELFPAY | PROVIDERS: PCP Nurse Practitioner Family; Visit Provider Orthopaedic Surgery | DX: Z98.890 Other specified postprocedural states (principal) | CPT/HCPCS: 99024 ==

== ENCOUNTER 2025-04-09 15:55 | Outpatient (RCR) | payer MEDICARE, OTHER, SELFPAY | END 2025-04-14 23:59 | disposition home or self-care (01) | LOC: GPT 15:55 | PROVIDERS: PCP Nurse Practitioner Family; Visit Provider Orthopaedic Surgery | DX: Z98.890 Other specified postprocedural states (principal) | CPT/HCPCS: 97162 ==

== ENCOUNTER 2025-05-02 09:06 | Outpatient (RCR) | payer MEDICARE, OTHER, SELFPAY | END 2025-05-15 23:59 | disposition home or self-care (01) | LOC: GPT 09:06 | PROVIDERS: PCP Nurse Practitioner Family; Visit Provider Orthopaedic Surgery | DX: Z98.890 Other specified postprocedural states (principal) | CPT/HCPCS: 97110; 97112; 97140 ==

== ENCOUNTER → 2025-05-03 10:25 | Outpatient (BNVA) | payer MEDICARE, OTHER, SELFPAY | PROVIDERS: PCP Nurse Practitioner Family; Visit Provider Nurse Practitioner | DX: M65.931 Unspecified synovitis and tenosynovitis, right forearm (principal) | CPT/HCPCS: 99213 ==

== ENCOUNTER → 2025-05-14 10:12 | Outpatient (BNVA) | payer MEDICARE, OTHER, SELFPAY | PROVIDERS: PCP Nurse Practitioner Family; Visit Provider Orthopaedic Surgery | DX: Z98.890 Other specified postprocedural states (principal) | CPT/HCPCS: 99024 ==